=== PATIENT | male | born 1960 | race Caucasian/White ===

== ENCOUNTER 2021-09-27 06:16 | Emergency (ER) | payer OTHER ==
[2021-09-27 06:55] LABS: #Basophils 0.1 10x3/uL (0.0-0.2); #Monocytes 0.6 10x3/uL (0.0-1.1); #Neutrophils 7.2 10x3/uL (1.5-8.4); %Basophils 0.6 % (0.0-2.0); %Eosinophils 0.5 % (0.0-6.0); %Lymphocytes 7.5 % (18.0-47.0); %Monocytes 7.5 % (0.0-10.0); %Neutrophils 83.4 % (40.0-75.0); Hemoglobin 14.9 g/dL (13.5-17.5); Mean Corpuscular HGB CONC 32.7 g/dL (32.0-36.0); Mean Corpuscular Volume 82.8 fl (81.2-95.1); Mean Platelet Volume 10.6 fl (7.4-10.4); Platelet Count 203 10x3/uL (150-450); RBC Distribution Width 12.8 % (11.5-14.5); Red Blood Cell (RBC) Count 5.51 10x6/uL (4.32-5.72); White Blood Cell (WBC) Count 8.6 10x3/uL (3.5-10.5)
[2021-09-27 07:05] LABS: ALT (SGPT) 19 U/L (8-55); AST (SGOT) 9 U/L (5-34); Albumin 4.3 g/dL (3.5-5.0); Alkaline Phosphatase 69 U/L (40-110); Anion Gap 15 mmol/L (10-20); BUN (Urea Nitrogen) 14 mg/dL (8.4-25.7); Bilirubin, Total 0.7 mg/dL (0.2-1.2); Calc. Creatinine Clearance 0 mL/min (70-130); Calcium 9.3 mg/dL (7.8-10.44); Carbon Dioxide 24 mmol/L (22-29); Chloride 106 mmol/L (98-107); Glucose 111 mg/dL (70-105); Lipase 32 U/L (8-78); Potassium 5.2 mmol/L (3.5-5.1); Protein, Total 7.3 g/dL (6.0-8.3); Sodium 140 mmol/L (136-145)
[2021-09-27] MEDS ORDERED: Aspirin Chewable 81 MG TAB ONE (08:35)
[2021-09-27] MEDS ORDERED: Nitroglycerin 2% Ointment 1 INCH/1 GM Packet ONE (08:35)
[2021-09-27] MEDS ORDERED: Lidocaine Viscous Sol 2% 15 ml UD Cup ONE (08:36)
[2021-09-27] MEDS ORDERED: Mag-Al Plus 1200 MG/1200 MG/120 MG/30 ML UDCUP ONE (08:36)
[2021-09-27 09:11] LABS: D-Dimer Test 0.61 mg/L FEU (0.19-0.50); INR-International Normal Ratio 1.4; Prothrombin Time 15.2 sec (9.5-12.1)
[2021-09-27 10:20] LABS: SARS-CoV-2 NAA Rapid Test Not Detected (NotDetected)
[2021-09-27] MEDS ORDERED: Iopamidol 370 76% 100 ML VIAL ONE (10:26)
== END 2021-09-27 10:48 ==
LOC: CSHERS 06:16 → EEVIPCON 06:16 → CSHERS 10:48
DX: R07.89 Other chest pain (principal); I12.9 Hypertensive chronic kidney disease with stage 1 through stage 4 chronic kidney disease, or unspecified chronic kidney disease; N18.9 Chronic kidney disease, unspecified; Z20.822 Contact with and (suspected) exposure to COVID-19
CPT/HCPCS: 36415; 71045; 71275; 80053; 83690; 84484; 85025; 85379; 85610; 93005; U0002

== ENCOUNTER 2021-09-28 06:24 | Emergency (ER) | payer OTHER ==
[2021-09-28] MEDS ORDERED: Aspirin Chewable 81 MG TAB ONE (06:49)
[2021-09-28] MEDS ORDERED: Magnesium 2 GM/50 ML BAG (IN WATER) ONE (06:50)
[2021-09-28] MEDS ORDERED: Diltiazem 125 MG/25 ML ONE (06:50)
[2021-09-28] MEDS ORDERED: Digoxin 0.5 MG/2 ML AMP ONE (06:50)
[2021-09-28 07:35] LABS: #Monocytes 0.7 10x3/uL (0.0-1.1); #Neutrophils 6.7 10x3/uL (1.5-8.4); %Basophils 0.5 % (0.0-2.0); %Eosinophils 0.4 % (0.0-6.0); %Lymphocytes 11.3 % (18.0-47.0); %Neutrophils 79.4 % (40.0-75.0); Hemoglobin 15.4 g/dL (13.5-17.5); Mean Corpuscular HGB CONC 33.8 g/dL (32.0-36.0); Mean Corpuscular Hemoglobin 27.1 pg (27.0-33.0); Mean Corpuscular Volume 80.1 fl (81.2-95.1); Platelet Count 197 10x3/uL (150-450); RBC Distribution Width 13.2 % (11.5-14.5); Red Blood Cell (RBC) Count 5.69 10x6/uL (4.32-5.72); White Blood Cell (WBC) Count 8.4 10x3/uL (3.5-10.5)
[2021-09-28 07:54] LABS: ALT (SGPT) 19 U/L (8-55); AST (SGOT) 10 U/L (5-34); Albumin 4.4 g/dL (3.5-5.0); Alkaline Phosphatase 63 U/L (40-110); Anion Gap 20 mmol/L (10-20); BUN (Urea Nitrogen) 17 mg/dL (8.4-25.7); Bilirubin, Total 1.2 mg/dL (0.2-1.2); CK (CPK) 228 U/L (30-200); Calc. Creatinine Clearance 0 mL/min (70-130); Calcium 9.1 mg/dL (7.8-10.44); Carbon Dioxide 20 mmol/L (22-29); Chloride 104 mmol/L (98-107); Globulin 3.2 g/dL (2.4-3.5); Glucose 94 mg/dL (70-105); Lipase 15 U/L (8-78); Potassium 4.5 mmol/L (3.5-5.1); Protein, Total 7.6 g/dL (6.0-8.3); Sodium 139 mmol/L (136-145)
[2021-09-28 07:55] LABS: D-Dimer Test 2.42 mg/L FEU (0.19-0.50); INR-International Normal Ratio 1.5; PTT 35.3 sec (22.0-33.0)
== END 2021-09-28 13:54 | disposition short-term general hospital (02) ==
LOC: CSHERS 06:24
DX: I48.91 Unspecified atrial fibrillation (principal); R07.9 Chest pain, unspecified; I12.9 Hypertensive chronic kidney disease with stage 1 through stage 4 chronic kidney disease, or unspecified chronic kidney disease; N18.9 Chronic kidney disease, unspecified; E78.5 Hyperlipidemia, unspecified; E78.00 Pure hypercholesterolemia, unspecified; Z79.899 Other long term (current) drug therapy
CPT/HCPCS: 36415; 71045; 80053; 82550; 83690; 83880; 84484; 85025; 85379; 85610; 85730; 93005; 96365; 96375; 96376; 99292; J1160; J3475